=== PATIENT | male | born 1995 | race Caucasian/White ===

== ENCOUNTER 2022-09-21 17:40 | Emergency (ER) | payer BC, OTHER ==
[2022-09-21] MEDS ORDERED: Diphtheria,Pertussis(Acell),Tetanus Vaccine 0.5 ML Syringe IM ONE (18:12)
== END 2022-09-21 19:13 | disposition home or self-care (01) ==
LOC: MW.ED 17:40
DX: S91.331A Puncture wound without foreign body, right foot, initial encounter (principal); Z23 Encounter for immunization; W45.0XXA Nail entering through skin, initial encounter
CPT/HCPCS: 90471; 90715; 99282; 99283-25

== ENCOUNTER 2023-03-10 17:30 | Emergency (ER) | payer OTHER ==
[2023-03-10] MEDS ORDERED: diphenhydrAMINE 50 MG/ML SDV ONE (17:36)
[2023-03-10] MEDS ORDERED: Famotidine 20 MG/2 ML SDV ONE (17:36)
[2023-03-10] MEDS ORDERED: methylPREDNISolone Sodium Succinate 125 MG/2 ML SDV ONE (17:36)
[2023-03-10] MEDS ORDERED: diphenhydrAMINE 50 MG/ML SDV IVPUSH ONE (17:47)
[2023-03-10] MEDS ORDERED: Famotidine 20 MG/2 ML SDV IVPUSH ONE (17:47)
[2023-03-10] MEDS ORDERED: methylPREDNISolone Sodium Succinate 125 MG/2 ML SDV IVPUSH ONE (17:48)
== END 2023-03-10 19:24 | disposition home or self-care (01) ==
LOC: MW.ED 17:30
DX: T78.40XA Allergy, unspecified, initial encounter (principal); Z91.048 Other nonmedicinal substance allergy status
CPT/HCPCS: 96374; 96375; 99284; J1200; J2930; J3490

== ENCOUNTER 2023-06-01 21:56 | Emergency (ER) | payer SELFPAY ==
[2023-06-01] MEDS: diphenhydrAMINE 50 MG/ML SDV IVPUSH ONE (22:29)
[2023-06-01] MEDS: methylPREDNISolone Sodium Succinate 125 MG/2 ML SDV IVPUSH STA (22:29)
[2023-06-01] MEDS: Famotidine 20 MG/2 ML SDV IVPUSH ONE (22:29)
== END 2023-06-01 23:28 | disposition home or self-care (01) ==
LOC: MW.ED 21:56
DX: L50.9 Urticaria, unspecified (principal); I10 Essential (primary) hypertension; Z91.041 Radiographic dye allergy status
CPT/HCPCS: 96374; 96375; 99283; J1200; J2930; J3490